=== PATIENT | male | born 1965 | race Two or more races ===

== ENCOUNTER → 2021-11-26 | Emergency (ER) | payer SELFPAY ==
[~2021-11-26] VITALS: Ht 177.8 cm; Wt 90.7 kg
[~2021-11-26] MED LIST: cloNIDine HCL 0.1 MG TAB ONE; cloNIDine HCL 0.1 MG TAB PO ONE
[2021-11-26 14:01] VITALS: BP 173/110
== END | disposition home or self-care (01) ==
LOC: ER 13:51
DX: I16.0 Hypertensive urgency (principal); F17.210 Nicotine dependence, cigarettes, uncomplicated; F12.10 Cannabis abuse, uncomplicated; E78.5 Hyperlipidemia, unspecified